=== PATIENT | male | born 1955 | race Caucasian/White ===

== ENCOUNTER 2018-12-30 11:33 | Inpatient (IN) | payer MEDICARE, OTHER ==
[2018-12-30] MEDS: IPRATROPIUM (NEB) 0.5 MG/2.5 ML AMP INH (11:49)
[2018-12-30] MEDS: ALBUTEROL 0.5% (NEB) 2.5 MG/0.5 ML AMP INH (11:49)
[2018-12-30 12:02] LABS: ADD MAN DIFF? NO
[2018-12-30 12:09] LABS: ABNORMAL IP MESSAGE 1; BASOPHIL # 0.1 10^3/ul (0.0-0.1); BASOPHILS % 1.2 % (0.0-2.0); EOSINOPHILS # 2.2 10^3/ul (0.0-0.5); EOSINOPHILS % 20.8 % (0.0-7.0); HEMATOCRIT 42.8 % (42.0-52.0); HEMOGLOBIN 14.5 g/dl (14.0-18.0); LYMPHOCYTES # 1.4 10^3/ul (0.8-2.9); LYMPHOCYTES % 12.9 % (15.0-51.0); MEAN CORPUSCULAR HEMOGLOBIN 29.5 pg (29.0-33.0); MEAN CORPUSCULAR HGB CONC 33.9 g/dl (32.0-37.0); MEAN PLATELET VOLUME 9.9 fl (7.4-10.4); MONOCYTE # 0.9 10^3/ul (0.3-0.9); MONOCYTES % 8.6 % (0.0-11.0); NEUTROPHIL # 5.9 10^3/ul (1.6-7.5); PLATELET COUNT 387 10^3/UL (140-415); POSITIVE DIFF @See below; RED BLOOD COUNT 4.92 10^6/ul (4.70-6.10); RED CELL DISTRIBUTION WIDTH 12.1 % (11.5-14.5)
[2018-12-30 12:09] LABS: WHITE BLOOD COUNT 10.5 10^3/ul (4.8-10.8)
[2018-12-30] MEDS: DEXAMETHASONE 10 MG/ML 1 ML INJ IV (12:15)
[2018-12-30] MEDS: SOD CHLORIDE 0.9% 1,000 ML IV ×3 (12:15→19:02)
[2018-12-30] MEDS: CEFTRIAXONE 1 GM/50 ML (PMX) 50 ML IVPB (12:16)
[2018-12-30] MEDS: MAGNESIUM SULFATE 2 GM/50 ML 50 ML IVPB ×2 (12:16→13:15)
[2018-12-30 12:22] LABS: ANION GAP 13 (5-13); BLOOD UREA NITROGEN 15 mg/dl (7-20); CALCIUM 9.7 mg/dl (8.4-10.2); CARBON DIOXIDE 25 mmol/L (21-31); CHLORIDE 104 mmol/L (97-110); CREATININE 1.43 mg/dl (0.61-1.24); Estimated GFR 50 mL/min (>60); GLUCOSE 95 mg/dl (70-220); POTASSIUM 4.1 mmol/L (3.5-5.1); SODIUM 142 mmol/L (135-144)
[2018-12-30] MEDS: AZITHROMYCIN 500MG/NS (PMX) 250 ML IV (13:18)
[2018-12-30 13:24] LABS: ANISOCYTOSIS 1+ (0-0); BAND NEUTROPHILS #M 0.3 10^3/ul (0.0-0.6); BAND NEUTROPHILS % (M) 3 % (0-4); BASOPHIL #M 0.1 10^3/ul (0.0-0.0); BASOPHILS % (M) 1 % (0-2); EOSINOPHILS % (M) 18 % (0-7); LYMPHOCYTES #M 1.9 10^3/ul (0.8-2.9); LYMPHOCYTES % (M) 19 % (15-51); MICROCYTOSIS 1+ (0-0); MONOCYTES % (M) 10 % (0-11); MYELOCYTES #M 0.1 10^3/ul (0.0-0.0); MYELOCYTES % (M) 1 % (0-0); PLATELET ESTIMATE NORMAL; POIKILOCYTOSIS 1+ (0-0); POLYCHROMASIA 3+ (0-0); SEG NEUT #M 5.1 10^3/ul (1.6-7.5); SEGMENTED NEUTROPHILS (M) % 48 % (39-77)
[2018-12-30] MEDS ORDERED: ACETAMINOPHEN 325 MG TAB PO ×2 (14:00→15:30)
[2018-12-30 14:16] LABS: LACTIC ACID 1.3 mmol/L (0.5-2.0)
[2018-12-30] MEDS ORDERED: NACL 0.9% 3 ML SYG IV (15:30)
[2018-12-30] MEDS ORDERED: HYDROCODONE/APAP (5/325) TAB PO ×2 (15:30)
[2018-12-30] MEDS ORDERED: ACETAMINOPHEN 650 MG SUPP PR (15:30)
[2018-12-30] MEDS: AMLODIPINE 5 MG TAB PO (15:30)
[2018-12-30] MEDS ORDERED: LEVOFLOXACIN 750MG/D5W (PMX) 150 ML IVPB (15:30)
[2018-12-30] MEDS ORDERED: ONDANSETRON 4 MG TAB PO (16:00)
[2018-12-30] MEDS: ONDANSETRON 4 MG INJ IV (16:11)
[2018-12-30] MEDS: morphine 2 MG INJ IV ×2 (16:12→20:21)
[2018-12-30] MEDS: ALBUTEROL/IPRATROPIUM (NEB) 3 ML AMP HHN ×3 (17:00→23:11)
[2018-12-30] MEDS: hydrALAzine 20 MG INJ IV (17:46)
[2018-12-30 17:49] LABS: LACTIC ACID 2.1 mmol/L (0.5-2.0)
[2018-12-30] MEDS: CEFTRIAXONE 2 GM/50 ML (PMX) 50 ML IVPB (19:03)
[2018-12-30] MEDS: AZITHROMYCIN 500MG/NS (PMX) 250 ML IVPB (20:21)
[2018-12-30] MEDS: TAMSULOSIN (SR) 0.4 MG CAP PO (21:17)
[2018-12-30] MEDS: oxyCODONE (CR) 20 MG TAB [oxyCONTIN] PO (21:17)
[2018-12-30] MEDS: HYDROXYCHLOROQUINE 200 MG TAB PO (21:17)
[2018-12-30] MEDS ORDERED: OXYCODONE 60 MG PO (22:00)
[2018-12-31] MEDS: morphine 2 MG INJ IV ×5 (00:50→18:51)
[2018-12-31 01:23] LABS: ADD UMIC NO; UR ASCORBIC ACID 20 mg/dL (NEGATIVE); UR BILIRUBIN (Dip) NEGATIVE (NEGATIVE); UR BLOOD (Dip) NEGATIVE (NEGATIVE); UR CLARITY CLEAR (CLEAR); UR COLOR YELLOW (YELLOW); UR GLUCOSE (Dip) 1+ mg/dL (NEGATIVE); UR KETONES (Dip) NEGATIVE (NEGATIVE); UR LEUKOCYTE ESTERASE (Dip) NEGATIVE Leu/ul (NEGATIVE); UR NITRITE (Dip) NEGATIVE (NEGATIVE); UR SPECIFIC GRAVITY (Dip) 1.012 (1.003-1.030); UR TOTAL PROTEIN (Dip) NEGATIVE (NEGATIVE); UR UROBILINOGEN (Dip) NEGATIVE (NEGATIVE)
[2018-12-31 01:42] LABS: SODIUM,URINE RANDOM 86 mmol/L (30-90)
[2018-12-31] MEDS: oxyCODONE 15 MG TAB PO (01:58)
[2018-12-31] MEDS: hydrALAzine 20 MG INJ IV ×2 (01:58→17:07)
[2018-12-31] MEDS: SUMATRIPTAN 50 MG TAB PO (02:12)
[2018-12-31] MEDS: ALBUTEROL/IPRATROPIUM (NEB) 3 ML AMP HHN ×5 (03:09→20:23)
[2018-12-31] MEDS: SOD CHLORIDE 0.9% 1,000 ML IV (04:50)
[2018-12-31 05:48] LABS: ADD MAN DIFF? NO
[2018-12-31 05:54] LABS: WHITE BLOOD COUNT 11.4 10^3/ul (4.8-10.8)
[2018-12-31 05:54] LABS: BASOPHILS % 0.3 % (0.0-2.0); HEMATOCRIT 39.7 % (42.0-52.0); HEMOGLOBIN 13.4 g/dl (14.0-18.0); LYMPHOCYTES # 0.8 10^3/ul (0.8-2.9); LYMPHOCYTES % 7.1 % (15.0-51.0); MEAN CORPUSCULAR HEMOGLOBIN 29.4 pg (29.0-33.0); MEAN CORPUSCULAR HGB CONC 33.8 g/dl (32.0-37.0); MEAN CORPUSCULAR VOLUME 87.1 fl (82.0-101.0); MONOCYTE # 0.8 10^3/ul (0.3-0.9); MONOCYTES % 6.8 % (0.0-11.0); NEUTROPHIL # 9.8 10^3/ul (1.6-7.5); NEUTROPHILS % 85.3 % (39.0-77.0); PLATELET COUNT 370 10^3/UL (140-415); RED BLOOD COUNT 4.56 10^6/ul (4.70-6.10); RED CELL DISTRIBUTION WIDTH 12.4 % (11.5-14.5)
[2018-12-31 06:03] LABS: HEMOGLOBIN A1C 5.4 % (0-5.9)
[2018-12-31] MEDS: oxyCODONE (CR) 20 MG TAB [oxyCONTIN] PO ×3 (06:06→22:21)
[2018-12-31] MEDS: ONDANSETRON 4 MG INJ IV ×3 (06:06→20:45)
[2018-12-31 06:13] LABS: ALANINE AMINOTRANSFERASE 15 IU/L (13-69); ALBUMIN 4.3 g/dl (3.3-4.9); ALKALINE PHOSPHATASE 120 IU/L (42-121); ANION GAP 11 (5-13); ASPARTATE AMINO TRANSFERASE 27 IU/L (15-46); BILIRUBIN,INDIRECT 0.2 mg/dl (0-1.1); BILIRUBIN,TOTAL 0.2 mg/dl (0.2-1.3); BLOOD UREA NITROGEN 17 mg/dl (7-20); CALCIUM 9.3 mg/dl (8.4-10.2); CARBON DIOXIDE 23 mmol/L (21-31); CHLORIDE 109 mmol/L (97-110); CHOL/HDL RATIO 4.6 RATIO; CHOLESTEROL 149 mg/dl (100-200); CREATININE 1.16 mg/dl (0.61-1.24); Estimated GFR > 60 mL/min (>60); GLUCOSE 139 mg/dl (70-220); HDL CHOLESTEROL 32 mg/dl (30-78); LDL CHOLESTEROL,CALCULATED 107 mg/dl; MAGNESIUM 2.4 mg/dl (1.7-2.5); PHOSPHORUS 3.2 mg/dl (2.5-4.9); POTASSIUM 4.1 mmol/L (3.5-5.1); SODIUM 143 mmol/L (135-144); TOTAL PROTEIN 8.2 g/dl (6.1-8.1); TRIGLYCERIDES 49 mg/dl (0-149)
[2018-12-31 06:28] LABS: FREE THYROXINE INDEX (Calc) 2.63 ug/ml (0.65-3.89); T3 UPTAKE 39.2 % (23.5-40.5); T4 (THYROXINE) 6.7 ug/dl (5.5-11.0)
[2018-12-31 06:42] LABS: THYROID STIMULATING HORMONE 0.377 MIU/L (0.465-4.680)
[2018-12-31] MEDS: HYDROXYCHLOROQUINE 200 MG TAB PO ×2 (08:24→20:45)
[2018-12-31] MEDS: AMLODIPINE 5 MG TAB PO (08:24)
[2018-12-31] MEDS: FLUTICASONE/VILANTEROL 100-25 INH (08:26)
[2018-12-31] MEDS: ENOXAPARIN 40 MG/0.4 ML SYG SC (09:03)
[2018-12-31 09:54] LABS: LACTIC ACID 1.9 mmol/L (0.5-2.0)
[2018-12-31] MEDS: SCOPOLAMINE 1.5 MG PATCH TRANSDERM (10:30)
[2018-12-31] MEDS: CEFTRIAXONE 2 GM/50 ML (PMX) 50 ML IVPB (16:36)
[2018-12-31] MEDS: AZITHROMYCIN 500MG/NS (PMX) 250 ML IVPB (17:09)
[2018-12-31] MEDS: METOCLOPRAMIDE 10 MG INJ IV (18:50)
[2018-12-31] MEDS: FAMOTIDINE 20 MG INJ IV (20:45)
[2018-12-31] MEDS: TAMSULOSIN (SR) 0.4 MG CAP PO (20:45)
[2018-12-31] MEDS: ZOLPIDEM 5 MG TAB PO (21:02)
[2019-01-01] MEDS: METOCLOPRAMIDE 10 MG INJ IV ×4 (00:21→17:31)
[2019-01-01] MEDS: oxyCODONE (CR) 20 MG TAB [oxyCONTIN] PO ×3 (05:40→22:25)
[2019-01-01 05:46] LABS: ADD MAN DIFF? NO
[2019-01-01 05:51] LABS: BASOPHIL # 0.1 10^3/ul (0.0-0.1); BASOPHILS % 0.9 % (0.0-2.0); EOSINOPHILS # 1.5 10^3/ul (0.0-0.5); EOSINOPHILS % 10.4 % (0.0-7.0); HEMATOCRIT 43.4 % (42.0-52.0); HEMOGLOBIN 14.2 g/dl (14.0-18.0); LYMPHOCYTES # 1.5 10^3/ul (0.8-2.9); LYMPHOCYTES % 10.8 % (15.0-51.0); MEAN CORPUSCULAR HGB CONC 32.7 g/dl (32.0-37.0); MEAN CORPUSCULAR VOLUME 88.8 fl (82.0-101.0); MEAN PLATELET VOLUME 9.5 fl (7.4-10.4); MONOCYTE # 1.4 10^3/ul (0.3-0.9); MONOCYTES % 9.6 % (0.0-11.0); NEUTROPHIL # 9.5 10^3/ul (1.6-7.5); NEUTROPHILS % 67.9 % (39.0-77.0); PLATELET COUNT 420 10^3/UL (140-415); RED BLOOD COUNT 4.89 10^6/ul (4.70-6.10); RED CELL DISTRIBUTION WIDTH 12.8 % (11.5-14.5)
[2019-01-01] MEDS ORDERED: PANTOPRAZOLE 40 MG INJ IV (06:00)
[2019-01-01 06:54] LABS: ANION GAP 14 (5-13); BLOOD UREA NITROGEN 17 mg/dl (7-20); CALCIUM 9.3 mg/dl (8.4-10.2); CARBON DIOXIDE 24 mmol/L (21-31); CHLORIDE 108 mmol/L (97-110); CREATININE 1.13 mg/dl (0.61-1.24); Estimated GFR > 60 mL/min (>60); GLUCOSE 121 mg/dl (70-220); MAGNESIUM 2.4 mg/dl (1.7-2.5); PHOSPHORUS 4.3 mg/dl (2.5-4.9); POTASSIUM 3.9 mmol/L (3.5-5.1); SODIUM 146 mmol/L (135-144)
[2019-01-01] MEDS: ALBUTEROL/IPRATROPIUM (NEB) 3 ML AMP HHN (07:39)
[2019-01-01] MEDS: SUMATRIPTAN 50 MG TAB PO ×2 (08:00→17:39)
[2019-01-01] MEDS: FAMOTIDINE 20 MG INJ IV (08:01)
[2019-01-01] MEDS: AMLODIPINE 5 MG TAB PO (08:01)
[2019-01-01] MEDS: HYDROXYCHLOROQUINE 200 MG TAB PO ×2 (08:01→20:23)
[2019-01-01] MEDS: ENOXAPARIN 40 MG/0.4 ML SYG SC (08:08)
[2019-01-01] MEDS: AMLODIPINE 10 MG TAB PO (09:00)
[2019-01-01] MEDS: POLYETHYLENE GLYCOL 17 GM PACKET PO (13:17)
[2019-01-01] MEDS: LISINOPRIL 10 MG TAB PO (13:18)
[2019-01-01] MEDS: FLUTICASONE/VILANTEROL 100-25 INH (13:19)
[2019-01-01] MEDS: CEFTRIAXONE 2 GM/50 ML (PMX) 50 ML IVPB (17:31)
[2019-01-01] MEDS: AZITHROMYCIN 500MG/NS (PMX) 250 ML IVPB (18:30)
[2019-01-01] MEDS: TAMSULOSIN (SR) 0.4 MG CAP PO (20:24)
[2019-01-01] MEDS: FAMOTIDINE 20 MG TAB PO (20:24)
[2019-01-01] MEDS: ZOLPIDEM 5 MG TAB PO (21:21)
[2019-01-02] MEDS: METOCLOPRAMIDE 10 MG INJ IV ×4 (00:27→18:20)
[2019-01-02 05:44] LABS: ADD MAN DIFF? NO
[2019-01-02] MEDS: oxyCODONE (CR) 20 MG TAB [oxyCONTIN] PO ×3 (05:46→21:29)
[2019-01-02 05:47] LABS: ABNORMAL IP MESSAGE 1; BASOPHIL # 0.2 10^3/ul (0.0-0.1); BASOPHILS % 1.4 % (0.0-2.0); EOSINOPHILS # 3.9 10^3/ul (0.0-0.5); EOSINOPHILS % 25.1 % (0.0-7.0); HEMOGLOBIN 14.2 g/dl (14.0-18.0); LYMPHOCYTES % 12.6 % (15.0-51.0); MEAN CORPUSCULAR VOLUME 87.8 fl (82.0-101.0); MEAN PLATELET VOLUME 9.7 fl (7.4-10.4); MONOCYTE # 1.5 10^3/ul (0.3-0.9); MONOCYTES % 9.7 % (0.0-11.0); NEUTROPHIL # 7.9 10^3/ul (1.6-7.5); NEUTROPHILS % 50.9 % (39.0-77.0); PLATELET COUNT 428 10^3/UL (140-415); POSITIVE DIFF @See below; RED CELL DISTRIBUTION WIDTH 12.9 % (11.5-14.5)
[2019-01-02 05:47] LABS: WHITE BLOOD COUNT 15.5 10^3/ul (4.8-10.8)
[2019-01-02 06:11] LABS: ANION GAP 12 (5-13); BLOOD UREA NITROGEN 21 mg/dl (7-20); CARBON DIOXIDE 24 mmol/L (21-31); CHLORIDE 108 mmol/L (97-110); CREATININE 1.15 mg/dl (0.61-1.24); Estimated GFR > 60 mL/min (>60); GLUCOSE 97 mg/dl (70-220); SODIUM 144 mmol/L (135-144)
[2019-01-02 06:12] LABS: B-TYPE NATRIURETIC PEPTIDE 831 PG/ML (0-125)
[2019-01-02] MEDS: FLUTICASONE/VILANTEROL 100-25 INH (08:51)
[2019-01-02] MEDS: POLYETHYLENE GLYCOL 17 GM PACKET PO (08:51)
[2019-01-02] MEDS: FAMOTIDINE 20 MG TAB PO ×2 (08:53→21:28)
[2019-01-02] MEDS: HYDROXYCHLOROQUINE 200 MG TAB PO ×2 (08:53→21:28)
[2019-01-02] MEDS: LISINOPRIL 10 MG TAB PO (08:54)
[2019-01-02] MEDS: AMLODIPINE 10 MG TAB PO (08:54)
[2019-01-02] MEDS: ENOXAPARIN 40 MG/0.4 ML SYG SC (10:56)
[2019-01-02 15:56] LABS: CREATININE, RANDOM URINE 66 mg/dL (20-320); MICROALBUMIN 1.6 mg/dL; MICROALBUMIN/CREATININE RATIO 24 (<30)
[2019-01-02] MEDS: CEFTRIAXONE 2 GM/50 ML (PMX) 50 ML IVPB (17:33)
[2019-01-02] MEDS: AZITHROMYCIN 500MG/NS (PMX) 250 ML IVPB (18:20)
[2019-01-02] MEDS: ZOLPIDEM 5 MG TAB PO (21:25)
[2019-01-02] MEDS: TAMSULOSIN (SR) 0.4 MG CAP PO (21:28)
[2019-01-03] MEDS: METOCLOPRAMIDE 10 MG INJ IV ×4 (00:07→17:38)
[2019-01-03] MEDS: oxyCODONE (CR) 20 MG TAB [oxyCONTIN] PO ×3 (05:52→22:03)
[2019-01-03 06:08] LABS: ADD MAN DIFF? NO
[2019-01-03 06:11] LABS: WHITE BLOOD COUNT 17.5 10^3/ul (4.8-10.8)
[2019-01-03 06:11] LABS: ABNORMAL IP MESSAGE 1; BASOPHIL # 0.2 10^3/ul (0.0-0.1); BASOPHILS % 1.2 % (0.0-2.0); EOSINOPHILS # 4.2 10^3/ul (0.0-0.5); HEMATOCRIT 42.8 % (42.0-52.0); HEMOGLOBIN 14.4 g/dl (14.0-18.0); LYMPHOCYTES # 1.9 10^3/ul (0.8-2.9); LYMPHOCYTES % 11.1 % (15.0-51.0); MEAN CORPUSCULAR HEMOGLOBIN 29.2 pg (29.0-33.0); MEAN CORPUSCULAR HGB CONC 33.6 g/dl (32.0-37.0); MEAN CORPUSCULAR VOLUME 86.8 fl (82.0-101.0); MEAN PLATELET VOLUME 9.7 fl (7.4-10.4); MONOCYTE # 1.6 10^3/ul (0.3-0.9); MONOCYTES % 9.2 % (0.0-11.0); NEUTROPHIL # 9.5 10^3/ul (1.6-7.5); NEUTROPHILS % 54.1 % (39.0-77.0); PLATELET COUNT 431 10^3/UL (140-415); POSITIVE DIFF @See below; RED BLOOD COUNT 4.93 10^6/ul (4.70-6.10); RED CELL DISTRIBUTION WIDTH 12.4 % (11.5-14.5)
[2019-01-03] MEDS ORDERED: METOPROLOL 5 MG INJ (07:00)
[2019-01-03 07:23] LABS: ANION GAP 11 (5-13); BLOOD UREA NITROGEN 20 mg/dl (7-20); CARBON DIOXIDE 24 mmol/L (21-31); CHLORIDE 107 mmol/L (97-110); CREATININE 1.08 mg/dl (0.61-1.24); Estimated GFR > 60 mL/min (>60); GLUCOSE 110 mg/dl (70-220); SODIUM 142 mmol/L (135-144)
[2019-01-03] MEDS: AMLODIPINE 10 MG TAB PO (08:23)
[2019-01-03] MEDS: FAMOTIDINE 20 MG TAB PO ×2 (08:23→20:51)
[2019-01-03] MEDS: LISINOPRIL 10 MG TAB PO (08:23)
[2019-01-03] MEDS: HYDROXYCHLOROQUINE 200 MG TAB PO ×2 (08:23→20:51)
[2019-01-03] MEDS: METOPROLOL 5 MG INJ IV (08:41)
[2019-01-03] MEDS: POLYETHYLENE GLYCOL 17 GM PACKET PO (09:00)
[2019-01-03] MEDS: FLUTICASONE/VILANTEROL 100-25 INH (09:00)
[2019-01-03] MEDS: ENOXAPARIN 40 MG/0.4 ML SYG SC (09:00)
[2019-01-03 10:12] LABS: MAGNESIUM 2.2 mg/dl (1.7-2.5)
[2019-01-03] MEDS: CEFTRIAXONE 2 GM/50 ML (PMX) 50 ML IVPB (16:32)
[2019-01-03] MEDS: AZITHROMYCIN 500MG/NS (PMX) 250 ML IVPB (17:38)
[2019-01-03] MEDS ORDERED: MAGNESIUM HYDROXIDE 30ML CUP PO (20:30)
[2019-01-03] MEDS: TAMSULOSIN (SR) 0.4 MG CAP PO (20:50)
[2019-01-03] MEDS: METOPROLOL 25 MG TAB PO (20:51)
[2019-01-03] MEDS: MAGNESIUM HYDROXIDE 30ML CUP PO (20:52)
[2019-01-03] MEDS: ZOLPIDEM 5 MG TAB PO (21:36)
[2019-01-04] MEDS: METOCLOPRAMIDE 10 MG INJ IV ×3 (00:18→12:16)
[2019-01-04] MEDS: oxyCODONE (CR) 20 MG TAB [oxyCONTIN] PO ×3 (05:53→22:24)
[2019-01-04 06:32] LABS: ADD MAN DIFF? NO
[2019-01-04 06:39] LABS: WHITE BLOOD COUNT 18.3 10^3/ul (4.8-10.8)
[2019-01-04 06:39] LABS: ABNORMAL IP MESSAGE 1; BASOPHIL # 0.2 10^3/ul (0.0-0.1); BASOPHILS % 1.3 % (0.0-2.0); EOSINOPHILS # 4.9 10^3/ul (0.0-0.5); EOSINOPHILS % 26.8 % (0.0-7.0); HEMATOCRIT 42.9 % (42.0-52.0); HEMOGLOBIN 14.5 g/dl (14.0-18.0); LYMPHOCYTES # 2.2 10^3/ul (0.8-2.9); LYMPHOCYTES % 11.9 % (15.0-51.0); MEAN CORPUSCULAR HEMOGLOBIN 29.5 pg (29.0-33.0); MEAN CORPUSCULAR HGB CONC 33.8 g/dl (32.0-37.0); MEAN CORPUSCULAR VOLUME 87.2 fl (82.0-101.0); MEAN PLATELET VOLUME 9.6 fl (7.4-10.4); MONOCYTE # 1.6 10^3/ul (0.3-0.9); NEUTROPHIL # 9.3 10^3/ul (1.6-7.5); NEUTROPHILS % 50.5 % (39.0-77.0); PLATELET COUNT 418 10^3/UL (140-415); POSITIVE DIFF @See below; RED BLOOD COUNT 4.92 10^6/ul (4.70-6.10); RED CELL DISTRIBUTION WIDTH 12.6 % (11.5-14.5)
[2019-01-04 07:13] LABS: ANION GAP 8 (5-13); BLOOD UREA NITROGEN 23 mg/dl (7-20); CARBON DIOXIDE 27 mmol/L (21-31); CHLORIDE 107 mmol/L (97-110); CREATININE 1.07 mg/dl (0.61-1.24); Estimated GFR > 60 mL/min (>60); GLUCOSE 109 mg/dl (70-220); POTASSIUM 4.4 mmol/L (3.5-5.1); SODIUM 142 mmol/L (135-144)
[2019-01-04] MEDS: FLUTICASONE/VILANTEROL 100-25 INH (08:33)
[2019-01-04] MEDS: AMLODIPINE 10 MG TAB PO (08:34)
[2019-01-04] MEDS: FAMOTIDINE 20 MG TAB PO ×2 (08:34→21:06)
[2019-01-04] MEDS: HYDROXYCHLOROQUINE 200 MG TAB PO ×2 (08:35→21:06)
[2019-01-04] MEDS: LISINOPRIL 10 MG TAB PO (08:35)
[2019-01-04] MEDS: METOPROLOL 25 MG TAB PO ×2 (08:35→21:06)
[2019-01-04] MEDS: ENOXAPARIN 40 MG/0.4 ML SYG SC (08:38)
[2019-01-04] MEDS: POLYETHYLENE GLYCOL 17 GM PACKET PO (09:00)
[2019-01-04 12:54] LABS: TROPONIN-I 0.013 ng/ml (0.000-0.120)
[2019-01-04] MEDS ORDERED: METOCLOPRAMIDE 10 MG INJ IV (13:30)
[2019-01-04] MEDS: CEFTRIAXONE 2 GM/50 ML (PMX) 50 ML IVPB (16:25)
[2019-01-04] MEDS: TAMSULOSIN (SR) 0.4 MG CAP PO (21:06)
[2019-01-04] MEDS: ZOLPIDEM 5 MG TAB PO (21:06)
[2019-01-05] MEDS: oxyCODONE (CR) 20 MG TAB [oxyCONTIN] PO ×3 (06:00→21:10)
[2019-01-05 06:44] LABS: ADD MAN DIFF? NO
[2019-01-05 06:49] LABS: ABNORMAL IP MESSAGE 1; BASOPHIL # 0.2 10^3/ul (0.0-0.1); BASOPHILS % 1.4 % (0.0-2.0); EOSINOPHILS # 4.7 10^3/ul (0.0-0.5); EOSINOPHILS % 26.6 % (0.0-7.0); HEMATOCRIT 42.9 % (42.0-52.0); HEMOGLOBIN 14.3 g/dl (14.0-18.0); LYMPHOCYTES # 1.8 10^3/ul (0.8-2.9); LYMPHOCYTES % 10.1 % (15.0-51.0); MEAN CORPUSCULAR HEMOGLOBIN 29.2 pg (29.0-33.0); MEAN CORPUSCULAR HGB CONC 33.3 g/dl (32.0-37.0); MEAN CORPUSCULAR VOLUME 87.6 fl (82.0-101.0); MEAN PLATELET VOLUME 9.6 fl (7.4-10.4); MONOCYTE # 1.7 10^3/ul (0.3-0.9); MONOCYTES % 9.8 % (0.0-11.0); NEUTROPHIL # 9.1 10^3/ul (1.6-7.5); NEUTROPHILS % 51.5 % (39.0-77.0); PLATELET COUNT 411 10^3/UL (140-415); POSITIVE DIFF @See below; RED CELL DISTRIBUTION WIDTH 12.5 % (11.5-14.5)
[2019-01-05 06:49] LABS: WHITE BLOOD COUNT 17.7 10^3/ul (4.8-10.8)
[2019-01-05 07:16] LABS: ANION GAP 8 (5-13); BLOOD UREA NITROGEN 25 mg/dl (7-20); CALCIUM 9.2 mg/dl (8.4-10.2); CARBON DIOXIDE 26 mmol/L (21-31); CHLORIDE 106 mmol/L (97-110); Estimated GFR > 60 mL/min (>60); GLUCOSE 106 mg/dl (70-220); POTASSIUM 4.5 mmol/L (3.5-5.1); SODIUM 140 mmol/L (135-144)
[2019-01-05] MEDS: POLYETHYLENE GLYCOL 17 GM PACKET PO (08:17)
[2019-01-05] MEDS: FLUTICASONE/VILANTEROL 100-25 INH (08:17)
[2019-01-05] MEDS: HYDROXYCHLOROQUINE 200 MG TAB PO ×2 (08:18→22:45)
[2019-01-05] MEDS: FAMOTIDINE 20 MG TAB PO ×2 (08:18→21:10)
[2019-01-05] MEDS: METOPROLOL 25 MG TAB PO ×2 (08:18→21:10)
[2019-01-05] MEDS: AMLODIPINE 10 MG TAB PO (08:18)
[2019-01-05] MEDS: LISINOPRIL 10 MG TAB PO (08:18)
[2019-01-05] MEDS: ENOXAPARIN 40 MG/0.4 ML SYG SC (08:22)
[2019-01-05] MEDS: oxyCODONE 15 MG TAB PO (08:25)
[2019-01-05] MEDS: REGADENOSON 0.4 MG/5 ML SYG (11:25)
[2019-01-05] MEDS: CEFTRIAXONE 2 GM/50 ML (PMX) 50 ML IVPB (17:33)
[2019-01-05] MEDS: TAMSULOSIN (SR) 0.4 MG CAP PO (21:10)
[2019-01-05] MEDS: ONDANSETRON 4 MG INJ IV (21:16)
[2019-01-05] MEDS: LEVALBUTEROL (NEB) 1.25 MG/0.5 ML AMP HHN (22:51)
[2019-01-06] MEDS: oxyCODONE (CR) 20 MG TAB [oxyCONTIN] PO ×3 (06:22→22:09)
[2019-01-06 06:44] LABS: ADD MAN DIFF? NO
[2019-01-06 06:47] LABS: WHITE BLOOD COUNT 18.3 10^3/ul (4.8-10.8)
[2019-01-06 06:47] LABS: ABNORMAL IP MESSAGE 1; BASOPHIL # 0.2 10^3/ul (0.0-0.1); BASOPHILS % 1.1 % (0.0-2.0); EOSINOPHILS # 4.9 10^3/ul (0.0-0.5); HEMATOCRIT 40.8 % (42.0-52.0); HEMOGLOBIN 13.4 g/dl (14.0-18.0); LYMPHOCYTES % 10.8 % (15.0-51.0); MEAN CORPUSCULAR HEMOGLOBIN 28.9 pg (29.0-33.0); MEAN CORPUSCULAR HGB CONC 32.8 g/dl (32.0-37.0); MEAN CORPUSCULAR VOLUME 87.9 fl (82.0-101.0); MEAN PLATELET VOLUME 9.9 fl (7.4-10.4); MONOCYTE # 1.8 10^3/ul (0.3-0.9); MONOCYTES % 9.9 % (0.0-11.0); NEUTROPHIL # 9.2 10^3/ul (1.6-7.5); NEUTROPHILS % 50.4 % (39.0-77.0); PLATELET COUNT 409 10^3/UL (140-415); POSITIVE DIFF @See below; RED BLOOD COUNT 4.64 10^6/ul (4.70-6.10); RED CELL DISTRIBUTION WIDTH 12.6 % (11.5-14.5)
[2019-01-06 07:07] LABS: PHOSPHORUS 4.5 mg/dl (2.5-4.9)
[2019-01-06 07:07] LABS: MAGNESIUM 2.2 mg/dl (1.7-2.5)
[2019-01-06 07:09] LABS: ANION GAP 8 (5-13); BLOOD UREA NITROGEN 30 mg/dl (7-20); CALCIUM 9.2 mg/dl (8.4-10.2); CARBON DIOXIDE 28 mmol/L (21-31); CHLORIDE 105 mmol/L (97-110); CREATININE 1.19 mg/dl (0.61-1.24); Estimated GFR > 60 mL/min (>60); GLUCOSE 111 mg/dl (70-220); POTASSIUM 4.4 mmol/L (3.5-5.1); SODIUM 141 mmol/L (135-144)
[2019-01-06] MEDS: METOPROLOL 25 MG TAB PO ×2 (08:48→20:10)
[2019-01-06] MEDS: HYDROXYCHLOROQUINE 200 MG TAB PO ×2 (08:48→20:09)
[2019-01-06] MEDS: AMLODIPINE 10 MG TAB PO (08:48)
[2019-01-06] MEDS: FLUTICASONE/VILANTEROL 100-25 INH (08:48)
[2019-01-06] MEDS: LISINOPRIL 10 MG TAB PO (08:48)
[2019-01-06] MEDS: FAMOTIDINE 20 MG TAB PO ×2 (08:48→20:09)
[2019-01-06] MEDS: POLYETHYLENE GLYCOL 17 GM PACKET PO (08:49)
[2019-01-06] MEDS: ENOXAPARIN 40 MG/0.4 ML SYG SC (08:52)
[2019-01-06] MEDS: ACETYLCYSTEINE 20% 4 ML VIAL NEB (13:29)
[2019-01-06] MEDS: CEFTRIAXONE 2 GM/50 ML (PMX) 50 ML IVPB (16:47)
[2019-01-06] MEDS: TAMSULOSIN (SR) 0.4 MG CAP PO (20:09)
[2019-01-07 06:52] LABS: ADD MAN DIFF? NO
[2019-01-07] MEDS: oxyCODONE (CR) 20 MG TAB [oxyCONTIN] PO ×3 (06:55→21:44)
[2019-01-07 06:58] LABS: WHITE BLOOD COUNT 15.7 10^3/ul (4.8-10.8)
[2019-01-07 06:58] LABS: ABNORMAL IP MESSAGE 1; BASOPHIL # 0.2 10^3/ul (0.0-0.1); BASOPHILS % 1.3 % (0.0-2.0); EOSINOPHILS # 4.6 10^3/ul (0.0-0.5); EOSINOPHILS % 29.1 % (0.0-7.0); HEMOGLOBIN 13.8 g/dl (14.0-18.0); LYMPHOCYTES # 2.1 10^3/ul (0.8-2.9); LYMPHOCYTES % 13.4 % (15.0-51.0); MEAN CORPUSCULAR HEMOGLOBIN 29.1 pg (29.0-33.0); MEAN CORPUSCULAR HGB CONC 32.9 g/dl (32.0-37.0); MEAN CORPUSCULAR VOLUME 88.4 fl (82.0-101.0); MEAN PLATELET VOLUME 9.9 fl (7.4-10.4); MONOCYTE # 1.3 10^3/ul (0.3-0.9); MONOCYTES % 8.2 % (0.0-11.0); NEUTROPHIL # 7.4 10^3/ul (1.6-7.5); NEUTROPHILS % 47.2 % (39.0-77.0); PLATELET COUNT 401 10^3/UL (140-415); POSITIVE DIFF @See below; RED BLOOD COUNT 4.75 10^6/ul (4.70-6.10); RED CELL DISTRIBUTION WIDTH 12.6 % (11.5-14.5)
[2019-01-07 07:18] LABS: MAGNESIUM 2.1 mg/dl (1.7-2.5)
[2019-01-07 07:18] LABS: PHOSPHORUS 4.6 mg/dl (2.5-4.9)
[2019-01-07 07:21] LABS: ANION GAP 9 (5-13); BLOOD UREA NITROGEN 28 mg/dl (7-20); CALCIUM 9.3 mg/dl (8.4-10.2); CARBON DIOXIDE 27 mmol/L (21-31); CHLORIDE 106 mmol/L (97-110); CREATININE 1.23 mg/dl (0.61-1.24); Estimated GFR 60 mL/min (>60); GLUCOSE 116 mg/dl (70-220); POTASSIUM 4.3 mmol/L (3.5-5.1); SODIUM 142 mmol/L (135-144)
[2019-01-07] MEDS: POLYETHYLENE GLYCOL 17 GM PACKET PO (08:28)
[2019-01-07] MEDS: LISINOPRIL 10 MG TAB PO (08:28)
[2019-01-07] MEDS: HYDROXYCHLOROQUINE 200 MG TAB PO ×2 (08:28→21:43)
[2019-01-07] MEDS: METOPROLOL 25 MG TAB PO ×2 (08:28→21:44)
[2019-01-07] MEDS: AMLODIPINE 10 MG TAB PO (08:29)
[2019-01-07] MEDS: FAMOTIDINE 20 MG TAB PO ×2 (08:29→21:43)
[2019-01-07] MEDS: FLUTICASONE/VILANTEROL 100-25 INH (08:31)
[2019-01-07] MEDS: ENOXAPARIN 40 MG/0.4 ML SYG SC (08:31)
[2019-01-07] MEDS ORDERED: MIDAZOLAM 1 MG/ML 2 ML INJ (11:07)
[2019-01-07] MEDS: LIDOCAINE 1% (MPF) 30 ML INJ (11:07)
[2019-01-07] MEDS ORDERED: FENTAnyl 50 MCG/ML VIAL (11:07)
[2019-01-07] MEDS ORDERED: PROPOFOL 20 ML (11:56)
[2019-01-07] MEDS ORDERED: LIDOCAINE 2% (SDV) 5 ML INJ (11:56)
[2019-01-07] MEDS ORDERED: SUCCINYLCHOLINE CHLORIDE 100 MG/5 ML SYG IV (11:56)
[2019-01-07] MEDS ORDERED: ALBUTEROL 0.5% (NEB) 2.5 MG/0.5 ML AMP (12:08)
[2019-01-07] MEDS ORDERED: ONDANSETRON 4 MG INJ IV ×2 (14:00→16:00)
[2019-01-07] MEDS ORDERED: ALBUTEROL 0.083% (NEB) 2.5 MG/3 ML AMP HHN (14:00)
[2019-01-07] MEDS ORDERED: HYDROmorphONE 1 MG/5 ML IV SYRINGE IV ×4 (14:00→16:00)
[2019-01-07] MEDS ORDERED: FENTAnyl 50 MCG/ML VIAL IV ×2 (14:00→16:00)
[2019-01-07] MEDS ORDERED: RACEPINEPHRINE 2.25%(NEB) 0.5 ML AMP HHN (14:00)
[2019-01-07] MEDS ORDERED: MEPERIDINE 25 MG INJ IV ×2 (14:00→16:00)
[2019-01-07] MEDS ORDERED: DIPHENHYDRAMINE 50 MG INJ IV (16:00)
[2019-01-07] MEDS ORDERED: hydrALAzine 20 MG INJ IV (16:00)
[2019-01-07] MEDS ORDERED: METOCLOPRAMIDE 10 MG INJ IV (16:00)
[2019-01-07] MEDS ORDERED: LABETALOL HCL 20MG INJ IV (16:00)
[2019-01-07] MEDS: CEFTRIAXONE 2 GM/50 ML (PMX) 50 ML IVPB (17:25)
[2019-01-07] MEDS: TAMSULOSIN (SR) 0.4 MG CAP PO (21:42)
[2019-01-07] MEDS: ZOLPIDEM 5 MG TAB PO (21:50)
[2019-01-08] MEDS: oxyCODONE (CR) 20 MG TAB [oxyCONTIN] PO ×2 (06:14→14:23)
[2019-01-08 07:12] LABS: ABNORMAL IP MESSAGE 1; HEMATOCRIT 41.1 % (42.0-52.0); HEMOGLOBIN 13.2 g/dl (14.0-18.0); MEAN CORPUSCULAR HEMOGLOBIN 28.6 pg (29.0-33.0); MEAN CORPUSCULAR HGB CONC 32.1 g/dl (32.0-37.0); MEAN CORPUSCULAR VOLUME 89.2 fl (82.0-101.0); MEAN PLATELET VOLUME 10.2 fl (7.4-10.4); PLATELET COUNT 393 10^3/UL (140-415); POSITIVE DIFF @See below; RED BLOOD COUNT 4.61 10^6/ul (4.70-6.10); RED CELL DISTRIBUTION WIDTH 12.9 % (11.5-14.5)
[2019-01-08 07:12] LABS: WHITE BLOOD COUNT 16.7 10^3/ul (4.8-10.8)
[2019-01-08 07:21] LABS: ADD MAN DIFF? YES
[2019-01-08 07:44] LABS: PHOSPHORUS 3.8 mg/dl (2.5-4.9)
[2019-01-08 07:44] LABS: MAGNESIUM 2.1 mg/dl (1.7-2.5)
[2019-01-08 07:51] LABS: ANION GAP 10 (5-13); BLOOD UREA NITROGEN 27 mg/dl (7-20); CARBON DIOXIDE 27 mmol/L (21-31); CHLORIDE 105 mmol/L (97-110); CREATININE 1.14 mg/dl (0.61-1.24); Estimated GFR > 60 mL/min (>60); GLUCOSE 102 mg/dl (70-220); POTASSIUM 4.3 mmol/L (3.5-5.1); SODIUM 142 mmol/L (135-144)
[2019-01-08] MEDS: FAMOTIDINE 20 MG TAB PO (08:42)
[2019-01-08] MEDS: FLUTICASONE/VILANTEROL 100-25 INH (08:42)
[2019-01-08] MEDS: METOPROLOL 25 MG TAB PO (08:43)
[2019-01-08] MEDS: LISINOPRIL 10 MG TAB PO (08:43)
[2019-01-08] MEDS: HYDROXYCHLOROQUINE 200 MG TAB PO (08:43)
[2019-01-08] MEDS: AMLODIPINE 10 MG TAB PO (08:43)
[2019-01-08] MEDS: ENOXAPARIN 40 MG/0.4 ML SYG SC (08:44)
[2019-01-08] MEDS: POLYETHYLENE GLYCOL 17 GM PACKET PO (08:45)
[2019-01-08 09:43] LABS: ANISOCYTOSIS 1+ (0-0); BAND NEUTROPHILS #M 0.1 10^3/ul (0.0-0.6); BAND NEUTROPHILS % (M) 1 % (0-4); BASOPHIL #M 0.5 10^3/ul (0.0-0.0); BASOPHILS % (M) 3 % (0-2); EOSINOPHILS % (M) 31 % (0-7); LYMPHOCYTES % (M) 12 % (15-51); MICROCYTOSIS 1+ (0-0); MONOCYTE #M 1.1 10^3/ul (0.3-0.9); MONOCYTES % (M) 7 % (0-11); PLATELET ESTIMATE NORMAL; POIKILOCYTOSIS 1+ (0-0); SEG NEUT #M 7.7 10^3/ul (1.6-7.5); SEGMENTED NEUTROPHILS (M) % 46 % (39-77); SMUDGE%M 3 % (0-0)
== END 2019-01-08 15:58 | disposition home or self-care (01) | DRG 853 ==
LOC: TEL 01-03 09:29 → E/R 11:33 → 2NE 13:40
PROC: 0B9F8ZZ Drainage of Right Lower Lung Lobe, Via Natural or Artificial Opening Endoscopic (ICD-10-PCS; principal; 2019-01-07 10:30)
PROC: 0B958ZZ Drainage of Right Middle Lobe Bronchus, Via Natural or Artificial Opening Endoscopic (ICD-10-PCS; 2019-01-07 10:30)
DX: A41.9 Sepsis, unspecified organism (principal); J18.9 Pneumonia, unspecified organism; J96.90 Respiratory failure, unspecified, unspecified whether with hypoxia or hypercapnia; J44.1 Chronic obstructive pulmonary disease with (acute) exacerbation; N17.9 Acute kidney failure, unspecified; I12.0 Hypertensive chronic kidney disease with stage 5 chronic kidney disease or end stage renal disease; I47.1 Supraventricular tachycardia; I42.9 Cardiomyopathy, unspecified; T17.890A Other foreign object in other parts of respiratory tract causing asphyxiation, initial encounter; M32.9 Systemic lupus erythematosus, unspecified; G89.4 Chronic pain syndrome; N40.0 Benign prostatic hyperplasia without lower urinary tract symptoms; G43.909 Migraine, unspecified, not intractable, without status migrainosus; N18.9 Chronic kidney disease, unspecified; E66.9 Obesity, unspecified; Z68.26 Body mass index [BMI] 26.0-26.9, adult; X58.XXXA Exposure to other specified factors, initial encounter; Y93.89 Activity, other specified; Y92.019 Unspecified place in single-family (private) house as the place of occurrence of the external cause
CPT/HCPCS: 36415; 71045; 71250; 76604; 78452; 80048; 80053; 80061; 81003; 82043; 82962; 83036; 83605; 83735; 83880; 84100; 84155; 84300; 84436; 84443; 84479; 84484; 85025; 87040-91; 87077; 87081; 87400; 93005; 93017; 93306; 94640; 94644; 94664; 96365; 96367; 96368; 96375; 99285-25